=== PATIENT | female | born 1985 | race Caucasian/White ===

== ENCOUNTER 2017-02-11 03:48 | Emergency (ER) | payer BC, MEDICARE ==
[~2017-02-11] VITALS: Ht 157.5 cm; Wt 81.6 kg
[2017-02-11 04:02] VITALS: BP_SYST 132
[2017-02-11] MEDS ORDERED: DIPH-TET-PERTUS Vaccine 0.5 ML VIAL (ADACEL) IM ONE (05:00)
[2017-02-11] MEDS ORDERED: BACITRACIN 1 GM OINT TP ONE (05:00)
[2017-02-11 06:19] VITALS: BP_SYST 130
== END 2017-02-11 06:19 | disposition home or self-care (01) ==
LOC: SED 03:48
DX: S01.112A Laceration without foreign body of left eyelid and periocular area, initial encounter (principal); W01.0XXA Fall on same level from slipping, tripping and stumbling without subsequent striking against object, initial encounter; Y93.89 Activity, other specified; Y92.89 Other specified places as the place of occurrence of the external cause; Y99.8 Other external cause status
CPT/HCPCS: 90715; 99283